=== PATIENT | male | born 1980 | race African-American/Black ===

== ENCOUNTER 2017-10-26 16:07 | Emergency (ER) | payer OTHER ==
[~2017-10-26] VITALS: Ht 185.4 cm; Wt 77.1 kg
[2017-10-26 16:53] VITALS: BP 145/80
[2017-10-26] MEDS ORDERED: ANUSOL-HC25 MG RECTAL (16:56)
[2017-10-26] MEDS ORDERED: COLACE100 MG ORAL (16:56)
--- NOTE | 2017-10-26 16:56 | Emergency Room Report ---
History of Present Illness General Chief Complaint: Pain Source: Patient Present Illness HPI 37 yo male patient presents to ER BIB ambulance complaining of blood on toilet paper. Reports "I think its hemorrhoids." Reports pain with BM. Reports feels "mass" come out when he is straining to pass stool. Denies pain at rest. Also complains of constipation. Reports straining with BM. Reports last BM today. Reports blood on toilet paper. Denies hx of HIV. Denies blood disorders. Denies nausea, vomiting, diarrhea, abdominal pain, chest pain, SOB. Allergies: Coded Allergies: No Known Allergies (Unverified , 10/26/17) Patient History Past Medical History: see triage record Reviewed Nursing Documentation: PMH: Agreed, PSxH: Agreed Nursing Documentation-PMH Past Medical History: No History, Except For Review of Systems All Other Systems: negative except mentioned in HPI Physical Exam Vital Signs Date Time Temp Pulse Resp B/P (MAP) Pulse Ox O2 Delivery O2 Flow Rate FiO2 10/26/17 15:58 98.2 74 18 145/80 100 Room Air 98.2 Sp02 EP Interpretation: reviewed, normal General Appearance: well appearing, no apparent distress, alert, GCS 15, non- toxic Head: normocephalic, atraumatic Eyes: bilateral eye normal inspection, bilateral eye PERRL ENT: hearing grossly normal, normal pharynx, no angioedema, normal voice, uvula midline, moist mucus membranes Neck: full range of motion Respiratory: lungs clear, normal breath sounds, no rhonchi, no respiratory distress, no accessory muscle use, no wheezing, speaking full sentences Cardiovascular #1: regular rate, rhythm, no edema Gastrointestinal: non tender, soft, no mass, non-distended, no guarding, no rebound Rectal: normal rectal tone, heme negative stool, prostate non-tender, other - no palpable veins, no TTP, stool brown in color, no red or black stool on rectal exam, no anal fissure, no skin tag Musculoskeletal: back normal, digits/nails normal, gait/station normal, normal range of motion, non-tender Neurologic: alert, oriented x3, responsive, motor strength/tone normal, sensory intact Psychiatric: mood/affect normal Skin: no rash Lymphatic: no adenopathy Medical Decision Making PA Attestation Dr. Sigala is my supervising Physician whom patient management has been discussed with. Diagnostic Impression: Primary Impression: Constipation Additional Impression: Hemorrhoid ER Course Pt. presents to the ED c/o blood on toilet paper and constipation. Ddx considered but are not limited to constipation, anal tag, anal fissure, hemorrhoids. Vital signs: are WNL, pt. is afebrile No orders required at this time. No signs of anemia, no pallor, patient reports no light headedness. ER COURSE: Fecal occult blood negative. No visible hemorrhoids. No anal fissure, no skin tags. No palpable veins or hemorrhoids on rectal exam. Will treat for hemorrhoids with Anusol, followup with primary care and discuss referral to GI and surgery as needed. Provide Colace for constipation. Instructed patient to drink plenty of fluids. DISCHARGE: Rx provided for Anusol Rx provided for Colace At this time pt is stable for d/c to home. Patient is resting comfortably, in no acute distress, nontoxic appearing, talking without difficulty. Patient to take medications as instructed Will provide with patient care instructions and any necessary prescriptions. Care plan and follow-up instructions provided. Patient instructed to follow-up with primary care provider in 3 - 5 days. Patient questions asked and answered. Patient reports understanding and agreement to treatment plan. ER precautions given. Patient instructed to return to ER immediately for any new or worsening of symptoms including but not limited to increasing SOB, persistent fever. Last Vital Signs Date Time Temp Pulse Resp B/P (MAP) Pulse Ox O2 Delivery O2 Flow Rate FiO2 10/26/17 15:58 98.2 74 18 145/80 100 Room Air 98.2 Disposition: HOME, SELF-CARE Condition: Stable Scripts Docusate Sodium* (COLACE*) 100 Mg Capsule 100 MG ORAL TWICE A DAY for 7 Days, #14 CAP Prov: Gen Guy P.A. 10/26/17 Hydrocortisone Acetate* (ANUSOL-HC*) 25 Mg Supp.rect 1 SUPP RECTAL TWICE A DAY for 14 Days, #28 SUPP Prov: Gen Guy P.A. 10/26/17 Patient Instructions: Constipation, Adult, [id number], Hemorrhoids, Easy-to- Read Additional Instructions: Followup with primary care provider in 3 -5 days. Discuss referral to surgery for treatment of suspected hemorrhoids. Take medications as directed. Patient questions asked and answered. ER precautions given, patient instructed to return to ER immediately for any new or worsening of symptoms. Gen Guy Oct 26, 2017 16:56
[2017-10-26 17:29] VITALS: BP 145/80
== END 2017-10-26 17:29 | disposition home or self-care (01) ==
LOC: EDBD 16:07 → EMR 17:00
DX: K59.00 Constipation, unspecified (principal); K64.9 Unspecified hemorrhoids
CPT/HCPCS: 99284

== ENCOUNTER 2018-01-20 08:14 | Emergency (ER) | payer OTHER ==
[~2018-01-20] VITALS: Ht 185.4 cm; Wt 79.4 kg
[~2018-01-20 08:14] MED LIST: ANUSOL-HC25 MG RECTAL; COLACE100 MG ORAL
[2018-01-20 08:31] VITALS: BP 125/79
--- NOTE | 2018-01-20 08:59 | Emergency Room Report ---
History of Present Illness General Chief Complaint: Abdominal Pain Source: Patient Present Illness HPI 37-year-old male with 10 days of "food poisoning". Patient states symptoms started after eating breakfast sandwich at facility where he staying. Pain is intermittent, in different places across abdomen, associated with nausea, vomiting and diarrhea. No prior surgical history, no recent travel, no other sick contacts. Patient tried to drink water this morning threw it up. Allergies: Coded Allergies: PENICILLINS (Verified Allergy, Unknown, 01/20/18) Patient History Past Medical History: none Past Surgical History: none Pertinent Family History: none Social History: Denies: smoking, alcohol use, drug use Immunizations: UTD Reviewed Nursing Documentation: PMH: Agreed; PSxH: Agreed Nursing Documentation-PMH Past Medical History: No History, Except For Review of Systems All Other Systems: negative except mentioned in HPI Physical Exam Vital Signs Date Time Temp Pulse Resp B/P (MAP) Pulse Ox O2 Delivery O2 Flow Rate FiO2 01/20/18 08:19 98.3 79 16 125/79 100 Room Air 98.2 Sp02 EP Interpretation: reviewed, normal General Appearance: normal inspection, well appearing, no apparent distress, alert, GCS 15, non-toxic Head: normocephalic, atraumatic Eyes: bilateral eye PERRL, bilateral eye EOMI ENT: normal ENT inspection, hearing grossly normal, normal pharynx, no angioedema, normal voice, TMs + canals normal, uvula midline, moist mucus membranes Neck: normal inspection, full range of motion, supple, thyroid normal, no meningismus, no bony tend Respiratory: normal inspection, lungs clear, normal breath sounds, no rhonchi, no respiratory distress, no retraction, no accessory muscle use, no wheezing, speaking full sentences Cardiovascular #1: regular rate, rhythm, no edema, no JVD, normal capillary refill Gastrointestinal: normal inspection, normal bowel sounds, non tender, soft, no mass, no peritonitis, non-distended, no guarding, no hernia, no pulsatile mass Genitourinary: no CVA tenderness Musculoskeletal: normal inspection, back normal, normal range of motion, no calf tenderness, pelvis stable, Paul's Sign negative Neurologic: normal inspection, alert, oriented x3, responsive, ship pilot III-XII nml as tested, motor strength/tone normal, cerebellar normal, normal gait, speech normal Psychiatric: normal inspection, judgement/insight normal, mood/affect normal, no suicidal/homicidal ideation, no delusions Skin: normal inspection, normal color, no rash Lymphatic: normal inspection, no adenopathy Medical Decision Making Diagnostic Impression: Primary Impression: Abdominal pain Qualified Codes: R10.84 - Generalized abdominal pain Additional Impressions: Diarrhea Qualified Codes: R19.7 - Diarrhea, unspecified Nausea & vomiting Qualified Codes: R11.2 - Nausea with vomiting, unspecified ER Course VSS, afebrile Abdomen non-focal Was given IV zofran, reglan, toradol, IVF with improvement Nonfocal exam on serial check Tolerating oral intake Likely viral gastroenteritis Labs are unremarkable for acute infectious process Low suspicion for acute cholecystitis, appendicitis given well appearance, duration of symptoms, afebrile, no leukocytosis, and serial abdominal exam unremarkable We'll discharge with Pepcid and when necessary Zofran ER course: Patient has remained stable during ED stay. Disposition: Patient is to be discharged to home. Prescriptions given are zofran, pepcid Patient is instructed to follow up with their primary care doctor within 5 days. Strict return precautions discussed with patient such as fever, chills, worsening/severe pain, nausea, vomiting, which may indicate severe illness. Patient verbalizes understanding and agrees with plan. Please note that this Emergency Department Report was dictated using [employer] room laborer technology software, occasionally this can lead to erroneous entry secondary to interpretation by the dictation equipment Last Vital Signs Date Time Temp Pulse Resp B/P (MAP) Pulse Ox O2 Delivery O2 Flow Rate FiO2 01/20/18 08:31 98.2 72 16 125/79 100 Room Air 98.2 Status: improved Disposition: HOME, SELF-CARE MOUSTAPHA MATHEWS M.D. Jan 20, 2018 08:59
[2018-01-20] MEDS ORDERED: Ketorolac 30mg Inj IV ONE (09:00)
[2018-01-20] MEDS ORDERED: Metoclopramide 10mg/2ml Inj IVP ONE (09:00)
[2018-01-20 09:28] LABS: ANION GAP 8 mmol/L (5-15); BLOOD UREA NITROGEN 12 mg/dL (7-18); CARBON DIOXIDE 28 MMOL/L (21-32); CHLORIDE 104 MMOL/L (98-107); CREATININE 1.3 MG/DL (0.55-1.30); POTASSIUM 4.5 MMOL/L (3.5-5.1); SODIUM 140 MMOL/L (136-145)
[2018-01-20 09:32] LABS: ALANINE AMINOTRANSFERASE 22 U/L (12-78); ALBUMIN 4.6 G/DL (3.4-5.0); ALBUMIN/GLOBULIN RATIO 1.3 (1.0-2.7); ALKALINE PHOSPHATASE 79 U/L (46-116); ASPARTATE AMINO TRANSFERASE 27 U/L (15-37); BILIRUBIN,TOTAL 0.8 MG/DL (0.2-1.0)
[2018-01-20 09:44] LABS: APPEARANCE,URINE CLEAR; BILIRUBIN, URINE NEGATIVE (NEGATIVE); COLOR,URINE PALE YELLOW; GLUCOSE, URINE (UA) NEGATIVE (NEGATIVE); KETONES,URINE NEGATIVE (NEGATIVE); LEUKOCYTE ESTERASE ,URINE NEGATIVE (NEGATIVE); NITRITE,URINE NEGATIVE (NEGATIVE); PH,URINE 8 (4.5-8.0); PROTEIN,URINE NEGATIVE (NEGATIVE); UROBILINOGEN,URINE NORMAL MG/DL (0.0-1.0)
[2018-01-20 09:49] LABS: HEMATOCRIT 42.4 % (42.0-52.0); HEMOGLOBIN 14.1 G/DL (14.2-18.0); MEAN CORPUSCULAR VOLUME 85 FL (80-99); PLATELET COUNT 238 K/UL (150-450); RED BLOOD COUNT 5.02 M/UL (4.70-6.10); RED CELL DISTRIBUTION WIDTH 11.6 % (11.6-14.8)
[2018-01-20] MEDS ORDERED: PEPCID AC20 M2 PO (10:23)
[2018-01-20] MEDS ORDERED: ZOFRAN ODT8 MG ORAL (10:23)
[2018-01-20 10:30] VITALS: BP 118/76
== END 2018-01-20 10:34 | disposition home or self-care (01) ==
LOC: EMR 09:47
DX: R10.9 Unspecified abdominal pain (principal); R19.7 Diarrhea, unspecified; R11.2 Nausea with vomiting, unspecified; Z88.0 Allergy status to penicillin
CPT/HCPCS: 36415; 80053; 81003; 83690; 85007; 85025; 96361; 96374; 96375; 99284; J1885; J2405; J2765; 96360; 96366